=== PATIENT | female | born 1970 | race Caucasian/White ===

== ENCOUNTER 2024-08-26 05:42 | Emergency (ER) | payer BC ==
[~2024-08-26] VITALS: Ht 170.2 cm; Wt 56.7 kg
[2024-08-26 05:52] VITALS: BP_SYST 128; PULSE 100; RESP 18; TEMP 98.1; O2SAT 98
[2024-08-26 07:46] LABS: BASOPHILS % (AUTO) 0.5 % (0.0-2.0); EOSINOPHILS % (AUTO) 0.9 % (0.0-4.0); HEMATOCRIT 35.2 % (36-48); HEMOGLOBIN 11.8 g/dL (12.0-16.0); LYMPHOCYTES # (AUTO) 0.9 K/uL (1.0-5.5); LYMPHOCYTES % (AUTO) 23.3 % (20.5-51.5); MEAN CORPUSCULAR HEMOGLOBIN 33 pg (27-31); MEAN CORPUSCULAR HGB CONC 34 % (32-36); MEAN CORPUSCULAR VOLUME 98 fL (79.0-98.0); MONOCYTES # (AUTO) 0.4 K/uL (0.0-1.0); MONOCYTES % (AUTO) 11.4 % (1.7-9.3); NEUTROPHILS # (AUTO) 2.4 K/uL (1.8-7.7); NEUTROPHILS % (AUTO) 63.9 % (40.0-70.0); PLATELET COUNT (AUTO) 305 K/uL (130-430); RED CELL DISTRIBUTION WIDTH 14.7 % (9.0-15.0); WHITE BLOOD COUNT (AUTO) 3.7 K/uL (4.8-10.8)
[2024-08-26] MEDS: KETOROLAC TROMETHAMINE 60 MG/2 ML VIAL IM ONE (07:55)
[2024-08-26 07:58] LABS: PROTHROMBIN TIME 10.8 SECS (9.5-12.5)
[2024-08-26 08:00] LABS: ALBUMIN 3.6 g/dL (3.4-4.8); BILIRUBIN,DIRECT 0.1 mg/dL (0.0-0.3); CALCIUM 9.2 mg/dL (8.4-11.0); CREATININE 0.69 mg/dL (0.55-1.30); POTASSIUM 4.2 mmol/L (3.5-5.1); TOTAL BILIRUBIN 0.4 mg/dL (0.0-1.0); TOTAL PROTEIN, SERUM 7.2 g/dL (6.4-8.3)
[2024-08-26 08:25] LABS: CKMB RELATIVE INDEX 0.4 (0.0-2.9)
[2024-08-26] MEDS: NACL 0.9% 1,000 ML IV ONE (09:08)
[2024-08-26] MEDS ORDERED: IBUP-1969 PO (09:27)
[2024-08-26] MEDS ORDERED: HYDR-3927 PO (09:27)
[2024-08-26 10:06] VITALS: BP_SYST 130; PULSE 84; RESP 18; TEMP 97; O2SAT 95
== END 2024-08-26 10:08 | disposition home or self-care (01) ==
LOC: SED 05:42
DX: R25.2 Cramp and spasm (principal); M79.605 Pain in left leg; M79.604 Pain in right leg
CPT/HCPCS: 99285; 93970; 80076; 80048; 82550; 82553; 83735; 85025; 85610; 85651; 85730; 36415; 96372; J1885; J7030